=== PATIENT | male | born 1960 | race Caucasian/White ===

== ENCOUNTER 2022-05-13 08:00 | Outpatient (NON) | payer OTHER, SELFPAY | END 2022-05-13 08:01 | disposition home or self-care (01) | PROVIDERS: PCP Family Medicine; Visit Provider Internal Medicine Gastroenterology | DX: D12.5 Benign neoplasm of sigmoid colon (principal); D12.8 Benign neoplasm of rectum | CPT/HCPCS: 88305 ==

== ENCOUNTER 2022-05-13 10:03 | Day surgery (SDC) | payer OTHER, SELFPAY ==
[2022-05-07 08:38] VITALS: BMI 30.6
--- NOTE | 2022-05-12 15:33 | PM.HPGS ---
History of Present Illness History of Present Illness Consent: Risks, benefits, and alternatives have been discussed and questions answered. Patient agrees to proceed with procedure. Chief complaint: Neoplasm Screening Narrative: Aleksandar Pedraza is a 61 year old male referred for colon cancer screening. Review of Systems Review of Systems: All systems reviewed & are unremarkable except as noted in HPI and below PMFSH Past Medical History Medical History (Updated 05/13/22 @ 08:52 by Jameson Lozano DO) Hyperlipidemia Hypertension Social History Social History Smoking status: Never smoker Alcohol intake: former Substance use: never Substance use type: does not use Living arrangements: with family Spiritual care concerns: No Meds Home Medications and Allergies Home Medications Medication Instructions Recorded Confirmed Type atorvastatin 10 mg tablet 10 mg PO DAILY 05/07/22 05/07/22 History hydrochlorothiazide 25 mg tablet 25 mg PO DAILY 05/07/22 05/07/22 History losartan 100 mg tablet 100 mg PO DAILY 05/07/22 05/07/22 History Allergies Allergy/AdvReac Type Severity Reaction Status Date / Time No Known Allergies Allergy Verified 05/13/22 11:24 Exam Const: General: alert Orientation/consciousness: patient oriented x3 Resp: Auscultation: clear to auscultation bilaterally Cardio: Rhythm: regular rhythm GI: GI Palp: Yes Soft to palpation and No Tenderness to palpation present (GI) Neuro: General: patient oriented x3 Assessment and Plan Assessment and plan (1) Colon cancer screening: Code(s): Z12.11 - Encounter for screening for malignant neoplasm of colon Status: Acute Assessment and Plan: Colonoscopy with possible biopsy or polypectomy or cautery or injection of substances.
--- NOTE | 2022-05-13 08:52 | WPDANESEPPF ---
Anes - Initial Pre Proc Eval Procedure: Operation Date: 05/13/22 14:30 Proposed Procedures p Screening Colonoscopy - Noel Brooke MD Date/Time: 05/13/22 08:52 Surgeon: Noel Brooke MD Pre Op Diagnosis: Neoplasm Screening Patient Data Age: 61 Gender: M Height: 1.75 m Weight: 94 kg Allergies Allergy/AdvReac Type Severity Reaction Status Date / Time No Known Allergies Allergy Verified 05/07/22 08:23 Home Medications Medication Instructions Recorded Confirmed Type atorvastatin 10 mg tablet 10 mg PO DAILY 05/07/22 05/07/22 History hydrochlorothiazide 25 mg tablet 25 mg PO DAILY 05/07/22 05/07/22 History losartan 100 mg tablet 100 mg PO DAILY 05/07/22 05/07/22 History Patient hx anesthesia problems: none Family hx anesthesia problems: none Results Review: All pre-operative results and documents have been reviewed as part of the pre-operative evaluation. [facility] Past Medical History Medical History (Updated 05/13/22 @ 08:52 by Jameson Lozano DO) Hyperlipidemia Hypertension Social History Social History Smoking status: Never smoker Alcohol intake: former Substance use: never Substance use type: does not use Living arrangements: with family Spiritual care concerns: No Anes - Eval Final PreProcedure Day of Procedure 05/13/22 08:52 Patient weight: obese Heart: regular rate and rhythm Lungs: clear to auscultation Airway: Mallampati scale class II Neurological: alert and oriented Last oral intake: >/= 8 hours ASA classification: III Emergent: no Anesthetic plan: proceed Anesthesia type and monitoring: general GIVS and standard monitoring Results Review: All pre-operative results and documents have been reviewed as part of the pre-operative evaluation. Informed Consent: The patient's anesthetic plan and its attendant risks and benefits were discussed with the patient/family/POA. Questions were solicited and answers provided to the satisfaction of the patient/family/POA.
[2022-05-13 10:45] VITALS: BP 155/98; PULSE 64; RESP 20; TEMP 36.2; O2SAT 100
[2022-05-13] MEDS: LACTATED RINGERS 1,000 ML 150 ML IV CONT (11:29)
[2022-05-13 11:46] VITALS: BP 111/87; PULSE 67; RESP 16; O2SAT 97
[2022-05-13 11:56] VITALS: BP 125/89; PULSE 66; RESP 16; O2SAT 98
[2022-05-13 12:06] VITALS: BP 119/83; PULSE 61; RESP 14; O2SAT 98
== END 2022-05-13 12:24 | disposition home or self-care (01) ==
PROVIDERS: PCP Family Medicine; Visit Provider Internal Medicine Gastroenterology
PROC: 0DJD8ZZ Inspection of Lower Intestinal Tract, Via Natural or Artificial Opening Endoscopic (ICD-10-PCS; CPT 45378; principal; 2022-05-13 14:30)
DX: Z12.11 Encounter for screening for malignant neoplasm of colon (principal)
CPT/HCPCS: 45385; 45380